=== PATIENT | female | born 1970 | race Caucasian/White ===

== ENCOUNTER 2017-04-08 13:30 | Emergency (ER) | payer MEDICARE, OTHER ==
[~2017-04-08 13:30] MED LIST: ALEVE220 MG PO; AMITIZA24 PO; BEN25 PO; BREO ELLIPTA INH; CAT1 PO; CAT2 PO; EXCEDRIN EXTRA1 EACH PO; FLONASE NAS; IBU800 PO; IMOD PO; NORV10 PO; PERCOCET1 TA2 PO; PHENTERMINE37.5 M1 OR; PHENTERMINE37.5 M1 PO; PR25 PO; PROAIR HFA INH; PROVHFA INH; SAPHRIS5 MG SL; SYMBICORT 160/41 INH INH; TEGRETOL XR400 MG PO; TEGXR200 PO; TORATAB PO; ULTRAM50 PO; VICODINTAB PO; VITAMIN B-121000 MC1 SL; VITAMIN B-122500 MCG SL; VITAMIN D1000 UNI1 PO; VITD PO; VOLT75 PO; ZYRTEC ALLGY10 MG PO; ZYVOXPO PO; [UNRECOGNIZED DRUG - OTHER] PO; [UNRECOGNIZED DRUG - OTHER] PO
== END 2017-04-08 16:22 | disposition home or self-care (01) ==
LOC: ER 13:30
DX: R10.31 Right lower quadrant pain (principal); J45.909 Unspecified asthma, uncomplicated; I10 Essential (primary) hypertension; Z88.8 Allergy status to other drugs, medicaments and biological substances; Z79.899 Other long term (current) drug therapy; W06.XXXA Fall from bed, initial encounter
CPT/HCPCS: 74176; 96372; 99284; J1885; J2800